=== PATIENT | female | born 1955 | race Caucasian/White ===

== ENCOUNTER 2023-04-02 05:02 | Observation (INO) ==
--- NOTE | 2023-02-25 11:50 | PAT Medication Instructions ---
Medication Instructions Date of Service February 25, 2023 Home Medications aspirin 81 mg tablet,delayed release 81 mg PO QAM diclofenac sodium 75 mg tablet,delayed release 75 mg PO BID glucosamine sulf dipot chlr,msm,chond 550 mg-C 30 mg-felicita 1 mg capsule (Glucosamine Chondroitin) 2 cap PO QAM levothyroxine 50 mcg tablet 50 mcg PO QAM yyxpoyvsjecp-oivxvhrb-pvmchr tablet (Multivitamin 50 Plus tablet) 1 tab PO QAM rosuvastatin 20 mg tablet 20 mg PO QAM turmeric 400 mg capsule 800 mg PO QAM vitamin A-vitamin C-vit E-min tablet 1 tab PO QAM MEDICATION INSTRUCTIONS: ASK your surgeon for instructions diclofenac sodium 75 mg tablet,delayed release 75 mg PO BID ASK your prescriber and surgeon aspirin 81 mg tablet,delayed release 81 mg PO QAM STOP taking 2 weeks before surgery glucosamine sulf dipot chlr,msm,chond 550 mg-C 30 mg-felicita 1 mg capsule (Glucosamine Chondroitin) 2 cap PO QAM turmeric 400 mg capsule 800 mg PO QAM vitamin A-vitamin C-vit E-min tablet 1 tab PO QAM DO NOT take the morning of surgery rwfzdcflhwcy-ocixwjqf-hsprmo tablet (Multivitamin 50 Plus tablet) 1 tab PO QAM Take morning of surgery With a small sip of water, OTHERWISE NOTHING TO EAT OR DRINK AFTER MIDNIGHT: rosuvastatin 20 mg tablet 20 mg PO QAM levothyroxine 50 mcg tablet 50 mcg PO QAM Other Notes If you have any questions please call us at [phone] or [phone] or [phone] or [phone]
--- NOTE | 2023-02-28 09:19 | Anesthesiology Consultation ---
Date of Service February 28, 2023 Assessment & Plan (1) Encounter for pre-operative examination: - Infectious disease screening: Per assessment on 02/28/23: No known infectious disease contacts or current infectious disease symptoms. No noted Covid positive test result in past 90 days. - Outpatient joint assessment: Pt currently scheduled for inpatient pathway. If surgeon requests review for outpatient joint pathway, patient is an acceptable candidate for outpatient joint program from anesthesia standpoint pending surgeon's office assessment that patient is motivated, has good support and completes Same Day Joint Program preop requirements. Chart Review Chart Review: Acceptable Risk for Surgery and Patient seen in Pre Admission Testing Teaching & Discussion Pre-Anesthesia Teaching/Discussion Notes: Instructed NPO after midnight before surgery,except medications with 15 cc of water. Medication instructions pro vided according to the PAT guidelines. History Surgery Operation Date: 04/02/23 15:25 Proposed Procedures p Left Total Knee Arthroplasty - Lopez Garcia MD Height/Weight Height: 5 ft 2 in Weight: 100 kg Allergies Allergy/AdvReac Type Severity Reaction Status Date / Time No Known Allergies Allergy Verified 02/21/23 14:00 Medications Home Medications Medication Instructions Recorded Confirmed Last Taken aspirin 81 mg tablet,delayed 81 mg PO QAM 02/21/23 02/21/23 Unknown release diclofenac sodium 75 mg 75 mg PO BID 02/21/23 02/21/23 Unknown tablet,delayed release glucosamine sulf dipot 2 cap PO QAM 02/21/23 02/21/23 Unknown chlr,msm,chond 550 mg-C 30 mg-felicita 1 mg capsule (Glucosamine Chondroitin) levothyroxine 50 mcg tablet 50 mcg PO QAM 02/21/23 02/21/23 Unknown lpecsyvwrxcw-ndfdzfml-ssbwaw 1 tab PO QAM 02/21/23 02/21/23 Unknown tablet (Multivitamin 50 Plus tablet) rosuvastatin 20 mg tablet 20 mg PO QAM 02/21/23 02/21/23 Unknown turmeric 400 mg capsule 800 mg PO QAM 02/21/23 02/21/23 Unknown vitamin A-vitamin C-vit E-min 1 tab PO QAM 02/21/23 02/21/23 Unknown tablet Past Medical History Medical History Arthritis Hyperlipidemia Hypothyroidism Exercise / Class Metabolic Activity II 4-5 Yardwork/Stairs/Walk up hill (one FS (no CP, no SOB)) Past Surgical History Surgical History History of adenoidectomy History of bilateral tubal ligation History of carpal tunnel release R/L History of cataract surgery R/L History of colonoscopy History of hysterectomy History of myringotomy History of tonsillectomy History of tooth extraction Hx of foot surgery cyst removed from right foot Past Anesthesia History No Hx of Anesthesia Complications and No Family Hx of Anesthesia Complications History of PONV No Hx of PONV and No Hx of Motion Sickness Social History Smoking Status: Former smoker Do You Dip or Chew Tobacco: No Smoking End Date: Quit 5 years Hx Alcohol Use: No Hx Substance Use: No substance use type: does not use Review of Systems Patient denies chest pain, shortness of breath, dyspnea on exertion, fever, chills, cough, wheezing, palpitations. Physical Exam Vital Signs VITALS BP 149/81 P 78 TEMP 98.3 SP02 96%RA RESP 18 PHYSICAL Full cervical extension range of motion. Full TMJ range of motion. Dentition: upper full dentures Lungs: clear throughout to auscultation Cardiac: regular rate and rhythm, no murmurs noted Spine: normal Carotid arteries: negative bruit Extremities: no LE edema Lab Results Anesthesia Preop Results Results Anesthesia Widget: WBC 7.53 K/ul (4.8-10.8) 02/28/23 Hgb 12.7 g/dl (12.0-16.0) 02/28/23 Hct 39.3 % (37.0-47.0) 02/28/23 Plt 321 K/uL (130-400) 02/28/23 Na 140 mmol/L (136-145) 02/28/23 K 4.1 mmol/L (3.5-5.1) 02/28/23 Cl 106 mmol/L (98-107) 02/28/23 CO2 28 mmol/L (21-32) 02/28/23 BUN 13 mg/dl (6-23) 02/28/23 Creat 0.66 mg/dl (0.6-1.2) 02/28/23 Glucose Level 90 mg/dl (70-99(Fasting)) 02/28/23 PT 10.7 Seconds (9.0-12.0) 02/28/23 PTT 23.8 Seconds (21.0-31.0) 02/28/23 INR 1.0 (0.9-1.1) 02/28/23 Urine Color Yellow 02/28/23 Urine Appearance Clear (Clear) 02/28/23 Urine pH 5.5 (4.5-7.5) 02/28/23 Urine Specific Aladdin 1.008 (1.000-1.030) 02/28/23 Urine Protein Negative (Negative) 02/28/23 Urine Glucose (UA) Negative (Negative) 02/28/23 Urine Ketones Negative (Negative) 02/28/23 Urine Blood Negative (Negative) 02/28/23 Urine Nitrite Negative (Negative) 02/28/23 Urine Bilirubin Negative (Negative) 02/28/23 Urine Urobilinogen Negative (Negative) 02/28/23 Urine Leukocyte Esterase Negative (Negative) 02/28/23 Blood Type A Negative 02/28/23 Antibody Screen NEGATIVE 02/28/23 Testing Electrocardiogram Date: 02/28/23 Findings: + NSR @ (67) Chest X-Ray Date: 02/28/23 FINDINGS: No lines and tubes are seen. Calcified aortic knob is seen. The lungs are clear. No evidence of pleural effusion or pneumothorax. IMPRESSION: No acute chest disease.
--- NOTE | 2023-03-31 17:52 | History & Physical Report ---
Date of Service March 31, 2023 Assessment & Plan (1) Primary osteoarthritis of left knee: Plan: Treatment options discussed with the patient. She has failed conservative measures and would like to proceed with surgical intervention. Risks, benefits and alternatives to surgery including but not limited to infection, DVT, pain, stiffness, need for revision surgery, damage to blood vessels, damage to nerves, PE, , were discussed with the patient and they wish to proceed. Beatrice n left total knee arthroplasty scheduled for [facility] on 04/02/[address] Garcia. Plan on outpatient physical therapy post op. Plan on aspirin 81mg twice daily for 1 month post op for DVT prophylaxis. All questions answered. Patient will f/u post op. History of Present Illness Chief Complaint: Left knee pain Primary Care Provider: Michelle Ruvalcaba PA-C 67yo female with PMHx significant for HTN, hypothyroidism, high cholesterol, who presents with ongoing left knee pain. She has failed conservative measures. Pain is interfering with her daily activity. She would like to proceed with surgical intervention. Patient denies headaches, sweats, fevers, chills, double vision, blurred vision, cough, sore throat, dysphagia, chest pain, sob, wheezing, n/v/d/c, numbness, tingling, fatigue, urinary symptoms, mood disorders. ROS p ositive for left knee pain and stiffness. Allergies Allergy/AdvReac Type Severity Reaction Status Date / Time No Known Allergies Allergy Verified 02/21/23 14:00 Home Medications Medication Instructions Recorded Confirmed Type aspirin 81 mg tablet,delayed 81 mg PO QAM 02/21/23 02/21/23 History release diclofenac sodium 75 mg 75 mg PO BID 02/21/23 02/21/23 History tablet,delayed release glucosamine sulf dipot 2 cap PO QAM 02/21/23 02/21/23 History chlr,msm,chond 550 mg-C 30 mg-felicita 1 mg capsule (Glucosamine Chondroitin) levothyroxine 50 mcg tablet 50 mcg PO QAM 02/21/23 02/21/23 History addczgsqvxfa-wqknoeul-safaki 1 tab PO QAM 02/21/23 02/21/23 History tablet (Multivitamin 50 Plus tablet) rosuvastatin 20 mg tablet 20 mg PO QAM 02/21/23 02/21/23 History turmeric 400 mg capsule 800 mg PO QAM 02/21/23 02/21/23 History vitamin A-vitamin C-vit E-min 1 tab PO QAM 02/21/23 02/21/23 History tablet Past Med/Surg History Medical History Arthritis Hyperlipidemia Hypothyroidism Surgical History History of adenoidectomy History of bilateral tubal ligation History of carpal tunnel release R/L History of cataract surgery R/L History of colonoscopy History of hysterectomy History of myringotomy History of tonsillectomy History of tooth extraction Hx of foot surgery cyst removed from right foot Social History Smoking Status: Former smoker Second Hand Exposure: No; Do You Dip or Chew Tobacco: No; Hx Alcohol Use: No Hx Substance Use: No Preferred Language: Thai Communication Ability: Effective Photogrammetric Tech Required: No Beliefs That Will Affect Care: None Current Living Situation: Spouse Feels Safe at Home: Yes Assistive Devices: Denture - Upper and Glasses Review of Systems All systems reviewed & are unremarkable except as noted in HPI & below Physical Exam Constitutional: well developed and well nourished; no acute distress Eyes: PERRL, conjunctivae normal, anicteric sclerae ENMT: external ear and nose normal, oropharynx normal Neck: trachea midline, no thyromegaly Respiratory: normal respiratory effort, lungs clear to auscultation Cardiovascular: RRR, no murmur, no edema Musculoskeletal: Left knee: mild effusion. Tenderness difusely with max tenderness lateral joint line. Guarded Smita's, stable to valgus and varus stress. ROM 0-125 degrees. Skin: no rashes, warm and dry Neurologic: patellar DTR's 2+ bilat, sensation intact Psychiatric: A+Ox3, euthymic affect Results & Data Diagnostic Findings Left knee radiographs demonstrate advanced osteoarthritis left knee, bon natividad bone lateral compartment. There is subluxation of femur on the tibia. She has periarticular osteophytes.
[2023-04-02] MEDS ORDERED: TRANEXAMIC ACID 1,000 MG **IV Intra-op IV SCH (06:00)
[2023-04-02] MEDS ORDERED: METOCLOPRAMIDE HCL 10 MG TABLET PO SCH (06:00)
[2023-04-02] MEDS ORDERED: dexAMETHasone 4 MG TAB PO SCH (06:00)
[2023-04-02] MEDS ORDERED: GABAPENTIN 300 MG CAP PO SCH (06:00)
[2023-04-02] MEDS ORDERED: ROPIVACAINE 0.5% HCL/PF 150 MG, BUPIVACAINE 0.75% MPF 20 ML, EPINEPHrine 30MG/30ML (OR ... INSTIL SCH (06:00)
[2023-04-02] MEDS ORDERED: ACETAMINOPHEN 500 MG TAB PO SCH (06:00)
[2023-04-02] MEDS ORDERED: TRANEXAMIC ACID 1,000 MG **IV Pre-op IV SCH (06:00)
[2023-04-02] MEDS ORDERED: CeleBREX 200 MG CAP PO SCH (06:00)
[2023-04-02] MEDS ORDERED: LR 500ML BOLUS, THEN 15ML/HR IV SCH (06:00)
[2023-04-02] MEDS ORDERED: FAMOTIDINE 20 MG TAB PO SCH (06:00)
[2023-04-02] MEDS ORDERED: ceFAZolin 2000MG 2,000 MG/15 ML SYR IV SCH (06:00)
[2023-04-02] MEDS ORDERED: LR 60ML/HR IV SCH (06:00)
[2023-04-02] MEDS ORDERED: ROPIVACAINE 0.5% 5 MG/ML 30 ML VIAL ONE (06:30)
[2023-04-02] MEDS ORDERED: HYDROmorphone INJ 1 MG/ML SYRINGE IV PRN (06:42)
[2023-04-02] MEDS ORDERED: ATROPINE SULFATE 0.1 MG/ML 10ML SYR IV PRN (06:42)
[2023-04-02] MEDS ORDERED: ONDANSETRON INJ 2 MG/ML 2 ML VIAL IV PRN ×2 (06:42→11:09)
[2023-04-02] MEDS ORDERED: KETOROLAC 30 MG/ML VIAL IV PRN (06:42)
[2023-04-02] MEDS ORDERED: ePHEDrine sulfate 50 MG/ML AMP IV PRN (06:42)
[2023-04-02] MEDS ORDERED: ORTHO JOINT ANESTHETIC ONE (06:58)
[2023-04-02] MEDS ORDERED: DEXAMETHASONE SOD INJ 4 MG/ML VIAL ONE (07:06)
[2023-04-02] MEDS ORDERED: LIDOCAINE 2% 2 ML VIAL/AMP(20MG/ML) INFIL ONE (07:06)
[2023-04-02] MEDS ORDERED: PROPOFOL IV EMULSION 10 MG/ML 20 ML VIAL IV ONE (07:06)
[2023-04-02] MEDS ORDERED: MIDAZOLAM HCL 1 MG/ML 2ML VIAL ONE (07:07)
--- NOTE | 2023-04-02 07:17 | History & Physical Bridge Note ---
Date of Service April 02, 2023 History & Physical Bridge Note I have examined the patient, reviewed the History & Physical and in the interval since the performance of the History & Physical I have noted the following changes of clinical significance: no changes noted
[2023-04-02] MEDS ORDERED: PHENYLEPHRINE HCL 10 MG/ML VIAL ONE (08:06)
--- NOTE | 2023-04-02 10:01 | Post Operative Brief Note ---
Immediate Post Op Note v1 Date of Surgery April 02, 2023 Pre & Post Diagnosis Operation Date: 04/02/23 07:15 Pre-Op Diagnosis: Left Knee Osteoarthritis Post-Op Diagnosis: Left Knee Osteoarthritis I identified the patient and participated in the time-out.: Yes Procedure Operation Date: 04/02/23 07:15 Actual Procedures p Left Total Knee Arthroplasty(Left), lateral release, alejo and Acticoat superficial wound VAC application- Lopez Garcia MD Surgeon Lopez Garcia MD Wireline Supervisor Helder SINGER Estimated Blood Loss 5 Findings Consistent with Post-Op Diagnosis Specimens Bone cuts Drains Hemovac Drain Anesthesia Type MAC Spinal Regional Complications none Disposition Disposition: Recovery Room Overlapping Procedure I was immediately available: during the entire case.
--- NOTE | 2023-04-02 10:10 | Operative Report ---
Post Operative Report Pre & Post Diagnosis Operation Date: 04/02/23 07:15 Pre-Op Diagnosis: Left Knee Osteoarthritis Post-Op Diagnosis: Left Knee Osteoarthritis I identified the patient and participated in the time-out.: Yes Procedure Operation Date: 04/02/23 07:15 Actual Procedures p Left Total Knee Arthroplasty(Left), lateral release, application alejo and Acticoat superficial wound VAC- Lopez Garcia MD Surgeon Lopez Garcia MD Asphalt Blender Helder SINGER Estimated Blood Loss 5 Findings Consistent with Post-Op Diagnosis Specimens Bone cuts Drains 2 Hemovac Anesthesia Type MAC Spinal Regional Complications none Disposition Disposition: Recovery Room Indications 68-year female with chronic progressive osteoarthritis left knee. Radiographs demonstrate that she has neutral alignment but has [id number]-lbcs in the lateral compartment and patellofemoral osteoarthritis. There is been some subluxation of the femur medially on the tibia. Description of Procedure The patient was taken to the operating room and anesthetized under spinal MAC regional block. Patient was placed supine on the the operating table. A pneumatic tourniquet was placed about the left obese upper thigh. The knee exam demonstrated an obese thigh with moderately obese knee with a knee effusion and good range of motion neutral alignment.. The involved leg was elevated exsanguinated with Esmarch bandage and the pneumatic tourniquet was raised to 350 millimeters mercury. A longitudinal incision was made across the anterior knee. Skin flaps were elevated. An incision was made into the medial retinaculum and extended up into the mid third of the quadriceps tendon and extended down to the tibial tubercle. Intra-articular findings demonstrated chronic ACL tear chronic lateral complex meniscus tear grade 4 osteoarthritis lateral compartment with some bone loss with grade 4 patellofemoral osteoarthritis on the patella. The knee was exposed by excising posterior cruciate ligament and menisci. The infrapatellar fat pad was resected. The fat pad over the anterior femur at the upper aspect of the articular surface was resected for placement of the component in that area. A subperiosteal peel lateral release was performed around the patella. The [employer] journey 2.0 posterior stabilized total knee arthroplasty system was utilized for the procedure. The custom femoral cutting guide was pinned in position. The distal femoral cut was made. The size 4, 5 in 1 cutting block was placed. The anterior posterior and chamfer cuts were made. The knee was extended and a free hand cut technique was performed to the patella. The patella width was measured and the width was reproduced using a 32 symmetrical patella component. 3 drill holes are made for the patella component pegs. The tibia was then subluxed. The custom tibial cutting block was pinned in position and the proximal tibial cut was made with the oscillating saw. Flexion and extension gaps were balanced. Medial releases were required including some selective pie crusting anterior MCL. The size 3 tibial trial was externally rotated in line with the tibial tubercle and pinned in position. The punch for the stem was used. The femoral trial was inserted and centered the notch cutting devices were used and the collet was placed. Tibial trials were used for the insert. The size 15 trial gave balanced ligaments through full range of motion. Patella tracking was assessed with range of motion. The patella tracked with some lateral tilt and lift off so a lateral release was performed leaving the geniculate vessels intact and this corrected the patella tracking to central with no tilt.. The trials were removed. The Orthomix anesthetic cocktail was injected per protocol. The cut bone surfaces and soft tissue were copiously irrigated with pulsatile lavage saline solution. The final components were cemented with Refobacin cement. The final components were [employer] journey 2.0 size 4 left posterior stabilized femoral component, 3 left tibial component, 15 mm tibial polyethylene insert, 32 mm symmetrical polyethylene patella. After the cement cured, the Betadine soak was used for 3 minutes. The knee was then copiously irrigated with pulsatile lavage saline solution. 2 drains were brought out laterally connected to Hemovac. The quadriceps tendon and medial retinaculum were closed with interrupted [id number] #1 Vicryl sutures. The knee was taken through full range of motion and repair was secure. Knee range of motion was 0 through 130 degrees. the subcutaneous tissues were closed with 2-0 Vicryl sutures. The skin was closed with kenya. A alejo and Acticoat superficial wound VAC was applied. The tourniquet was let down and the patient had good capillary refill to the extremity. The patient tolerated the procedure well. My physician assistant press operator Helder SINGER participated as assistant manager bilingual and was integral part in all aspects of the procedure including prepping, draping, leg positioning, soft tissue retraction, instrument management and assisted in the closure , wound VAC application and will pa rticipate in postoperative care the patient. I attest to the content of the Intraoperative Record and any orders documented therein. Any exceptions are noted below.
--- NOTE | 2023-04-02 11:04 | XRay Report ---
XR knee LT 1 or 2V routine HISTORY: 68 years-old Female Surgical Post Op left knee arthroplasty COMPARISON: None TECHNIQUE: 2 views of the left knee FINDINGS: Total joint arthroplasty with patellar resurfacing. Anterior midline skin kenya with expected posto perative soft tissue swelling, deep tissue air and surgical drainage catheter. No acute fracture or u nexpected opaque foreign body. IMPRESSION: Left knee total joint arthroplasty with expected postoperative changes. ACT 112: Negative or not required by law. The above report was generated using voice recognition software. It may contain grammatical, syntax o r spelling errors. Electronically signed by: Samy Parikh M.D. 04/02/2023 11:03 AM
[2023-04-02] MEDS ORDERED: METOCLOPRAMIDE HCL INJ 5 MG/ML 2 ML VIAL IV PRN (11:09)
[2023-04-02] MEDS ORDERED: MAGNESIUM HYDROXIDE SUSP 30 ML UDC PO PRN (11:09)
[2023-04-02] MEDS ORDERED: bisacodyL 10 MG SUPP PR PRN (11:09)
[2023-04-02] MEDS ORDERED: HYDROmorphone INJ 0.5 MG/0.5 ML SYR IV PRN (11:09)
[2023-04-02] MEDS ORDERED: NALOXONE HCL 0.4 MG/1 ML VIAL/CARP IV PRN (11:09)
[2023-04-02] MEDS: SODIUM CHLORIDE 0.9% 1,000 ML IV SCH ×2 (11:14→22:30)
--- NOTE | 2023-04-02 11:29 | Hospitalist Consultation ---
Date of Consultation April 02, 2023 Assessment & Plan (1) Primary osteoarthritis of left knee: - Pain management, bowel regimen and DVT ppx per the primary team - PT/OT consults, pt is planning on outpatient therapy with [facility] physical therapy in [place]. - Follow am CBC to monitor for acute blood loss, last hgb was 12.7 on 02/28 - Patient states that she is going to stop taking diclofenac sodium 75 mg twice a day and switched on to Celebrex during this admission to continue upon discharge. - DVT PPx with baby aspirin twice daily (2) Morbid obesity: - BMI of 39.7, encourage diet and weight loss thoughout hospital stay and on discharge - PT/OT consults - Consider nutrition consult (3) Hyperlipidemia: - Cont rosuvastatin 20 mg every morning -Chronic, stable as per lipid panel on epic review (4) Hypothyroidism: - Cont levothyroxine 50 mcg daily - Last TSH was 3.81 on 01/04/23, as per Epic review personally - Chronic, stable DVT ppx:teds, scds, asa 81 mg BID GI/FEN: HH diet Lines: 2 PIV CODE: FULL Dispo: From home, likely to remain in the hospital x 1-2 days Thank you for involving us in the care of Ms. Neff. Please do not hesitate to call with questions or concerns. At this time medicine service will follow along. Supervising Physician Co-Signing Physician Notes Pt seen and examined by me, care coordinated w/ Pb Rolle PA-C, pls refer to her note above for further detail. Pt is a 68 yo F with HTN, HLD, hypothyroidism, morbid obesity with BMI 39.7, tobacco use, endocervix cancer in 2018 s/p total hysterectomy, osteoporosis, glaucoma who is now s/p Left total knee arthroplasty by Dr. Garcia today (04/02/2023). Patient is doing well. Denies any nausea, chest pain, shortness of breath, she is having lunch. Currently denies any pain in her leg, she is able to wiggle her toes. she is alert oriented, answers appropriately, lungs are CTAB, no wheezing, rhonchi, crackles, heart sounds regular, abdomen soft, no ntender, obese. Cont. to closely monitor post-op, plan as above. ASA BID for dvt ppx per surgery. MD Dotty History of Present Illness Reason for Consultation: Medical management Requesting Physician: Dr. Garcia Attending Physician: Lopez Garcia MD History of Present Illness This is a 68 yo F with PMHx of HTN, HLD, hypothyroidism, morbid obesity with BMI 39.7, tobacco use, endocervix cancer in 2018 s/p total hysterectomy, osteoporosis, glaucoma who present to [facility] for routine Left total knee arthroplasty by Dr. Garcia on 04/02/2023. Patient is doing very well with her daughter sitting with her at bedside. She reports that this is her first knee replacement surgery, denies any acute pain, slightly numb in her knee but has sensation peripherally on her foot, able to wiggle her toes, can lift her hip up off the bed without issue. Last bowel movement was yesterday, discussion held regarding stool softener and MiraLAX at bedside. 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 She is anticipating taking several months off from this while she recovers from surgery. Denies any issues with tolerating p.o. intake after surgery today. She also notes that she quit smoking about 10 years ago, 30 years of smoking 3/4 pack/day. Denies any alcohol use or other illicit drug use. Allergies Allergy/AdvReac Type Severity Reaction Status Date / Time No Known Allergies Allergy Verified 04/02/23 05:39 Home Medications Medication Instructions Recorded Confirmed Type aspirin 81 mg tablet,delayed 81 mg PO QAM 02/21/23 04/02/23 History release diclofenac sodium 75 mg 75 mg PO BID 02/21/23 04/02/23 History tablet,delayed release glucosamine sulf dipot 2 cap PO QAM 02/21/23 04/02/23 History chlr,msm,chond 550 mg-C 30 mg-felicita 1 mg capsule (Glucosamine Chondroitin) levothyroxine 50 mcg tablet 50 mcg PO QAM 02/21/23 04/02/23 History ltlayfijjmtb-rvgqzxpj-jqsxwr 1 tab PO QAM 02/21/23 04/02/23 History tablet (Multivitamin 50 Plus tablet) rosuvastatin 20 mg tablet 20 mg PO QAM 02/21/23 04/02/23 History vitamin A-vitamin C-vit E-min 1 tab PO QAM 02/21/23 04/02/23 History tablet turmeric 900 mg-turmeric root 2 cap PO DAILY 04/02/23 04/02/23 History extract 100 mg-black pepper 5 mg capsule Patient History Medical History (Updated 04/02/23 @ 11:25 by Hui Rolle PA-C) Arthritis Hyperlipidemia Hypothyroidism Surgical History History of bilateral tubal ligation History of hysterectomy History of cataract surgery R/L Hx of foot surgery cyst removed from right foot History of carpal tunnel release R/L History of colonoscopy History of tooth extraction History of myringotomy History of adenoidectomy History of tonsillectomy Social History Smoking Status: Former smoker Smoking End Date: Quit 5 years; Second Hand Exposure: No; Do You Dip or Chew Tobacco: No; Tobacco Cessation Education Requested by Patient: No Hx Alcohol Use: No Hx Substance Use: No Preferred Language: Hebrew Communication Ability: Effective Greenhouse Transplanter Required: No Beliefs That Will Affect Care: None Current Living Situation: Spouse Other Information That Helps Us Care for You: No Feels Safe at Home: Yes Safety Concerns: Feels Safe At This Time Assistive Devices: Denture - Upper and Glasses Review of Systems Review of Systems: Constitutional: No fever, sweats or chills Eyes: No diplopia, no worsening or blurred vision ENT: normal hearing, no trouble swallowing Respiratory: No cough, sputum, dyspnea at rest or on exertion Cardiovascular: No chest pain, tightness or palpitations Abdomen: No pain, nausea, vomiting, diarrhea or constipation Musculoskeletal: No joint pain, calf pain, swelling Neurologic: No weakness, numbness/tingling, or balance problems Psychiatric: No anxiety or depression Skin: No rash or itch Physical Exam Physical Exam: General: awake, alert, no apparent distress, morbidly obese white female Head: Normocephalic, atraumatic ENT: PERRL, EOMI, no pharyngeal exudate, mucous membranes moist Chest: Clear to auscultation, on room air, no adventitious breath sounds Cardiac: Regular rate and rhythm, no murmur, no JVD, normal peripheral pulses, good capillary refill Abdominal: NABS x 4 quadrants, soft, nondistended, nontender to palpation, no rebound or guarding Extremities: Normal inspection, L knee with dressing C/D/I, CHRIS drain in place, no peripheral edema or erythema, calfs nontender to palpation Psych: Normal mood and affect Neuro: AAO x 3, strength intact bilaterally and rated 5/5, no motor deficits, speech is clear, no peripheral sensory deficits Results & Data Results & Data Vital Signs (Past 12 Hours) Vital Signs Temp Pulse Pulse Resp BP Pulse Ox O2 Del Method 04/02/23 10:50 65 18 126/73 97 Room Air 04/02/23 10:40 36.5 C 67 18 136/76 97 Room Air 04/02/23 10:30 71 20 135/76 98 Room Air 04/02/23 10:20 70 18 132/81 99 Nasal Cannula 04/02/23 10:10 79 18 120/80 99 Nasal Cannula 04/02/23 10:00 36.2 C L 77 18 112/71 99 Nasal Cannula 04/02/23 05:31 36.7 C 87 18 177/90 H 94 Room Air O2 Flow Rate 04/02/23 10:50 04/02/23 10:40 04/02/23 10:30 04/02/23 10:20 2 04/02/23 10:10 2 04/02/23 10:00 2 04/02/23 05:31 Diagnostic Findings Knee X-Ray 04/02/23 10:04 XR knee LT 1 or 2V routine HISTORY: 68 years-old Female Surgical Post Op left knee arthroplasty COMPARISON: None TECHNIQUE: 2 views of the left knee FINDINGS: Total joint arthroplasty with patellar resurfacing. Anterior midline skin kenya with expected postoperative soft tissue swelling, deep tissue air and surgical drainage catheter. No acute fracture or unexpected opaque foreign body. IMPRESSION: Left knee total joint arthroplasty with expected postoperative johnson nges. ACT 112: Negative or not required by law. The above report was generated using voice recognition software. It may contain grammatical, syntax or spelling errors. Electronically signed by: Samy Parikh M.D. 04/02/2023 11:03 AM
--- NOTE | 2023-04-02 11:44 | Anesthesiology Progress Note ---
Date of Service April 02, 2023 Anesthesia Post Procedure Vital Signs Vital Signs: Temp Pulse Pulse Resp BP Pulse Ox O2 Del Method 04/02/23 11:27 71 16 129/74 94 Room Air 04/02/23 10:50 65 18 126/73 97 Room Air 04/02/23 10:40 36.5 C 67 18 136/76 97 Room Air 04/02/23 10:30 71 20 135/76 98 Room Air 04/02/23 10:20 70 18 132/81 99 Nasal Cannula 04/02/23 10:10 79 18 120/80 99 Nasal Cannula 04/02/23 10:00 36.2 C L 77 18 112/71 99 Nasal Cannula 04/02/23 05:31 36.7 C 87 18 177/90 H 94 Room Air O2 Flow Rate 04/02/23 11:27 04/02/23 10:50 04/02/23 10:40 04/02/23 10:30 04/02/23 10:20 2 04/02/23 10:10 2 04/02/23 10:00 2 04/02/23 05:31 Transfer of Care Handoff Completed per policy Notes Mental Status: alert / awake / arousable Patient Amnestic to Procedure: Yes Nausea / Vomiting: adequately controlled Pain: adequately controlled Airway Patency, RR, SpO2: stable & adequate BP & HR: stable & adequate Hydration State: stable & adequate Anesthetic Complications: no major complications apparent
[2023-04-02] MEDS: ACETAMINOPHEN 500 MG TAB PO SCH ×2 (13:14→22:34)
[2023-04-02] MEDS: oxyCODONE HCL IR 5 MG TAB (IMMEDIATE RELEASE) PO PRN (16:09)
[2023-04-02] MEDS: ceFAZolin 2000MG 2,000 MG/15 ML SYR IV SCH (16:10)
[2023-04-02] MEDS ORDERED: SENNA 8.6 MG TAB PO SCH (21:00)
[2023-04-02] MEDS: ASPIRIN 81 MG ECTAB PO SCH (22:32)
[2023-04-02] MEDS: CeleBREX 200 MG CAP PO SCH (22:34)
[2023-04-02] MEDS: DOCUSATE SODIUM 100 MG CAP PO SCH (22:34)
[2023-04-03] MEDS: ceFAZolin 2000MG 2,000 MG/15 ML SYR IV SCH (01:11)
[2023-04-03] MEDS: ACETAMINOPHEN 500 MG TAB PO SCH (05:59)
[2023-04-03] MEDS ORDERED: LEVOTHYROXINE SODIUM 50 MCG TABLET PO SCH (06:30)
[2023-04-03] MEDS: ASPIRIN 81 MG ECTAB PO SCH (07:34)
[2023-04-03] MEDS: CeleBREX 200 MG CAP PO SCH (07:34)
[2023-04-03] MEDS: DOCUSATE SODIUM 100 MG CAP PO SCH (07:35)
--- NOTE | 2023-04-03 07:44 | Orthopedic Progress Note ---
Date of Service April 03, 2023 Assessment & Plan (1) Primary osteoarthritis of left knee: Plan: Postop day #1 left total knee arthroplasty -PT/OT -Pain management as written -DVT prophylaxis: SCDs, teds, aspirin 81 mg twice daily -A.m. labs are pending -Discharge planning: Plan on discharge home with plans on attending outpatient therapy. Hemovac output 150 overnight. Will monitor throughout the morning and if slows down plan on discharge home today. Addendum: Labs reviewed. Demonstrates hgb of 10.5 from 12.7 preop. Acute blood loss anemia due to surgical loss vs dilutional. Leukocytosis likely reactive due to surgical stress and perioperative steroids. Patient is asymptomatic. Hemovac with only 60cc of output after PT. Plan on d/c today. Admission and Anticipated Discharge Date Admission Date: April 02, 2023 Subjective Patient is postop day #1 left total knee arthroplasty. She is doing well this morning. Minimal pain. No current complaints. Denies chest pain, shortness of breath, nausea/vomiting/diarrhea, headaches or dizziness. Review of Systems Review of Systems: All systems reviewed & are unremarkable except as noted in Subjective Physical Exam Physical Exam: Left knee: Dressing is clean, dry, intact. Toes are mobile with good dorsiflexion. No calf tenderness. Able to do a straight leg raise. Distally neurovascular status and sensation is grossly intact. Results & Data Vital Signs (Past 12 Hours) Vital Signs Temp Pulse Resp BP Pulse Ox O2 Del Method 04/03/23 07:25 36.8 C 69 16 122/79 93 Room Air 04/03/23 02:55 36.5 C 68 16 123/67 93 Room Air 04/02/23 23:16 36.6 C 81 18 137/76 94 Room Air 04/02/23 20:00 36.6 C 86 16 143/82 H 96 Room Air
[2023-04-03 08:17] LABS: Hematocrit (blood only) 31.6 % (37.0-47.0); Hemoglobin 10.5 g/dl (12.0-16.0); Mean Corpuscular Hemoglobin 28.8 pg (25.0-34.0); Mean Corpuscular Hgb Conc 33.2 g/dL (32.0-36.0); Mean Corpuscular Volume 86.6 fL (80.0-100.0); Mean Platelet Volume 9.5 fL (9.4-12.4); Platelet Count 334 K/uL (130-400); RDW Coefficient of Variation 15.1 % (11.5-14.5); RDW Standard Deviation 48.2 fL (36.4-46.3); Red Blood Count 3.65 M/uL (4.20-5.40); White Blood Count 17.32 K/ul (4.8-10.8)
[2023-04-03 08:38] LABS: BUN Creatinine Ratio 19.8 (10-20); Calcium 8.7 mg/dl (8.6-10.3); Creatinine Clr Calc Pharmacy 73.9 ml/min; Est GFR (African American) 87.1 ml/min; Est GFR (Non-African American) 75.2 ml/min
[2023-04-03] MEDS ORDERED: ROSUVASTATIN CALCIUM 20 MG TAB PO SCH (09:00)
[2023-04-03] MEDS ORDERED: MULTIVITAMIN TAB PO SCH ×2 (09:00)
--- NOTE | 2023-04-03 10:47 | Hospitalist Progress Note ---
Date of Service April 03, 2023 Assessment & Plan (1) Primary osteoarthritis of left knee: Plan: - Pain management, bowel regimen and DVT ppx per the primary team - PT/OT consults, pt is planning on outpatient therapy with [facility] physical therapy in [place], [place]. - Patient states that she is going to stop taking diclofenac sodium 75 mg twice a day and switched on to Celebrex during this admission to continue upon discharge - DVT PPx with baby aspirin twice daily Acute blood loss anemia In post-operative setting Hgb 10.5 today (pre-op hgb 12.7) Asymptomatic; continue trending CBC during admission (2) Morbid obesity: Plan: - BMI of 39.7, encourage diet and weight loss thoughout hospital stay and on discharge - PT/OT consults - Consider nutrition consult (3) Hyperlipidemia: Plan: - Cont rosuvastatin 20 mg every morning -Chronic, stable as per lipid panel on epic review (4) Hypothyroidism: Plan: - Cont levothyroxine 50 mcg daily - Last TSH was 3.81 on 01/04/23, as per Epic review personally - Chronic, stable DVT ppx:teds, scds, asa 81 mg BID CODE: FULL Dispo: From home, likely to remain in the hospital x 1-2 days Thank you for involving us in the care of Ms. Neff. Please do not hesitate to call with questions or concerns. At this time medicine service will follow along. Admission and Anticipated Discharge Date Admission Date: April 02, 2023 Subjective Patient is postop day #1 left total knee arthroplasty. Feeling well today, offers no complaints overnight. Having minimal discomfort and feels ready to go home. No fever, chills, chest pain, shortness of breath. Tolerating diet without nausea or vomiting. Urinating without difficulty. Passing postop flatus, no bowel movement yet. Review of Systems Review of Systems: At least ten systems reviewed and negative except as noted in the HPI. Physical Exam Physical Exam: Gen: WD/WN, NAD, sitting in bedside chair, A&Ox3 HEENT: Normocephalic, atraumatic, conjunctivae moist, sclerae anicteric, mucous membranes moist Lung: Clear to Auscultation bilaterally, no wheezes/rales/rhonchi Heart: Regular rate, regular rhythm, no murmurs, rubs, or gallops Abdomen: Soft, NT, ND +BS x 4 Extremities: + L knee with dressing c/d/i. Hemovac drain in place. BLE strength 5/5. No edema Skin: Warm, no rash Results & Data Results & Data Vital Signs (Past 12 Hours) Vital Signs Temp Pulse Resp BP Pulse Ox O2 Del Method 04/03/23 09:26 Room Air 04/03/23 07:25 36.8 C 69 16 122/79 93 Room Air 04/03/23 02:55 36.5 C 68 16 123/67 93 Room Air 04/02/23 23:16 36.6 C 81 18 137/76 94 Room Air Laboratory Results Short CBC 04/03/23 Range/Units 07:45 WBC 17.32 H (4.8-10.8) K/ul Hgb 10.5 L (12.0-16.0) g/dl Hct 31.6 L (37.0-47.0) % Plt Count 334 (130-400) K/uL BMP 04/03/23 07:45 Sodium 136 Potassium 4.0 Chloride 104 Carbon Dioxide 26 BUN 16 Creatinine 0.81 Glucose 118 H Calcium 8.7 Diagnostic Findings Knee X-Ray 04/02/23 10:04 XR knee LT 1 or 2V routine HISTORY: 68 years-old Female Surgical Post Op left knee arthroplasty COMPARISON: None TECHNIQUE: 2 views of the left knee FINDINGS: Total joint arthroplasty with patellar resurfacing. Anterior midline skin kenya with expected postoperative soft tissue swelling, deep tissue air and surgical drainage catheter. No acute fracture or unexpected opaque foreign body. IMPRESSION: Left knee total joint arthroplasty with expected postoperative changes. ACT 112: Negative or not required by law. The above report was generated using voice recognition software. It may contain grammatical, syntax or spelling errors. Electronically signed by: Samy Parikh M.D. 04/02/2023 11:03 AM
[2023-04-03] MEDS: oxyCODONE HCL IR 5 MG TAB (IMMEDIATE RELEASE) PO PRN (11:31)
--- NOTE | 2023-04-03 11:53 | Discharge Summary ---
Date of Service April 03, 2023 Admission HPI Per Admitting Provider 67yo female with PMHx significant for HTN, hypothyroidism, high cholesterol, who presents with ongoing left knee pain. She has failed conservative measures. Pain is interfering with her daily activity. She would like to proceed with surgical intervention. Patient denies headaches, sweats, fevers, chills, double vision, blurred vision, cough, sore throat, dysphagia, chest pain, sob, wheezing, n/v/d/c, numbness, tingling, fatigue, urinary symptoms, mood disorders. ROS positive for left knee pain and stiffness. Admission Exam Per Admitting Provider Constitutional: well developed and well nourished; no acute distress Eyes: PERRL, conjunctivae normal, anicteric sclerae ENMT: external ear and nose normal, oropharynx normal Neck: trachea midline, no thyromegaly Respiratory: normal respiratory effort, lungs clear to auscultation Cardiovascular: RRR, no murmur, no edema Musculoskeletal: Left knee: mild effusion. Tenderness difusely with max tenderness lateral joint line. Guarded Smita's, stable to valgus and varus stress. ROM 0-125 degrees. Skin: no rashes, warm and dry Neurologic: patellar DTR's 2+ bilat, sensation intact Psychiatric: A+Ox3, euthymic affect Principal Diagnosis Left knee osteoarthritis Discharge Exam Left knee: Dressing is clean, dry, intact. Toes are mobile with good dorsiflexion. No calf tenderness. Able to do a straight leg raise. Distally neurovascular status and sensation is grossly intact. Constitutional well developed and well nourished; no acute distress Discharge Data Allergies Allergy/AdvReac Type Severity Reaction Status Date / Time No Known Allergies Allergy Verified 04/02/23 05:39 Consultations 03/28/23 15:49 Consult Hospitalist Routine Procedures Performed Operation Date: 04/02/23 07:15 Actual Procedures p Left Total Knee Arthroplasty(Left) - Lopez Garcia MD Ordered Studies 04/02/23 05:00 US - OR guided needle placemen Routine Hospital Course (1) Primary osteoarthritis of left knee: Postop day #1 left total knee arthroplasty -PT/OT -Pain management as written -DVT prophylaxis: SCDs, teds, aspirin 81 mg twice daily -A.m. labs are pending -Discharge planning: Plan on discharge home with plans on attending outpatient therapy. Hemovac output 150 overnight. Will monitor throughout the morning and if slows down plan on discharge home today. Addendum: Labs reviewed. Demonstrates hgb of 10.5 from 12.7 preop. Acute blood loss anemia due to surgical loss vs dilutional. Leukocytosis likely reactive due to surgical stress and perioperative steroids. Patient is asymptomatic. Hemovac with only 60cc of output after PT. Plan on d/c today. Total Time Total Time Spent Total Time Spent (In Minutes): 20 Discharge Plan Discharge Items Patient Disposition: Home - Self-Care Reason For Visit: Left Knee Osteoarthritis Discharge Diagnosis: Left knee osteoarthritis Activity: Per Instructions section Non-emergency contact: Surgeon Call non-emergency contact if: you have any medication questions, your pain is not controlled, your pain is concerning for you, you have a fever, your temperature is above 101, your wound has increased redness and your wound has increased drainage Follow-up/Referrals: Michelle Ruvalcaba PA-C [Primary Care Provider] - Diet: Regular Addtl Attending Provider Instructions: ACTIVITY RECOMMENDATIONS: SELF CARE INSTRUCTIONS AFTER TOTAL KNEE REPLACEMENT A. You may need to continue a physical therapy program after discharge from the hospital. There are several options available to you. Your doctor will assist you in selecting the best one for you. 1. An out-patient facility 2 to 3 times a week for therapy or home therapy. 2. Continue working on all exercises taught to you in the hospital. Your goals should be to increase bending of your knee to 90 degrees and beyond and to fully straighten your knee. B. You may progress at your own pace from walking with a walker or crutches to a cane; then to no assistive devices. C. Make walking a part of your daily routine. Be up as much as comfortable with rest periods throughout the day. Rest with leg elevation is very important. Use the ice wrap frequently for the first 3-4 weeks. D. There are no restrictions on activities. You may ride in a car, shop, participate in engine lathe set up operator tool and all social activities. E. Wear the long elastic stockings (JOHN hose) 20 hours a day for 2 weeks after surgery. They can be removed several times a day for laundering and for a bath. F. You may shower, no tub baths until cleared by your doctor. SPECIAL CARE INSTRUCTIONS: VERY IMPORTANT TO READ AND REVIEW A. There are a few signs you need to watch for after you are home. Call [facility] if you notice any of the followin. Increased severe knee pain. Some pain is expected especially when you exercise. 2. Increased swelling in your leg or knee; pain or swelling of the calf muscle in either lower leg. 3. Any fluid drainage from the incision. 4. Shortness of breath or chest pain. B. Please call [facility] at if you have any concerns or questions about your operation or recovery. The doctor or his nurse will return your call promptly. C. You must take antibiotics before dental work, bladder, bowel or other surgery. Your doctor will provide you with a permanent care to carry describing this precaution. IMPORTANT: * REMEMBER TO TAKE ASPIRIN, 81 MG, TWICE DAILY FOR 4 WEEKS UNLESS OTHERWISE DIRECTED. THIS IS YOUR BLOOD THINNER. * HIGH RISK PATIENTS MAY BE PRESCRIBED A STRONGER BLOOD THINNER. THIS WILL BE PROVIDED AT DISCHARGE. * CALL IF INCREASED PAIN, REDNESS, DRAINAGE OR FEVER GREATER THAT 101. * WEAR JOHN HOSE 20 HOURS PER DAY FOR 2 WEEKS. There is a large suction dressing covering your incision. This will help pull any excess drainage from the wound and allow your incision to heal properly. You may shower with this if you can keep the unit outside of the shower. If any bleeding or leakage is noted please call your doctor's office. This will remain on your incision for 7 days and then should be removed. This can be done yourself or by the home nursing staff if applicable. The entire unit is disposable once removed. Once removed, keep incision clean and dry. If redness or drainage is noted, please call your surgeon. IF INCISION IS LEAKING THROUGH DRESSING, CALL THE OFFICE . FOLLOW UP VISIT: If appointment is not already scheduled: Please call [facility] to make a follow-up appointment for 2 weeks after your surgery at . Stand-Alone Forms: My [employer], Smoking Cessation Medications and DC Order Prescriptions: New acetaminophen [Tylenol Extra Strength] 500 mg Tablet 1,000 mg PO Q8 Qty: 60 0RF aspirin 81 mg Tablet,Delayed Release (Dr/Ec) 81 mg PO BID Qty: 60 0RF celecoxib [Celebrex] 200 mg Capsule 200 mg PO BID Qty: 60 0RF oxycodone 5 mg Tablet 5 - 10 mg PO .Q4h-6h MDD 6 PRN (Reason: pain) Qty: 30 0RF Rx Instructions: Ongoing therapy, Dr. Garcia supervising Continued levothyroxine 50 mcg Tablet 50 mcg PO QAM Multivitamin 50 Plus Tablet 1 tab PO QAM vitamin A-vitamin C-vit E-min Tablet 1 tab PO QAM rosuvastatin 20 mg Tablet 20 mg PO QAM Glucosamine Chondroitin 550-30-1 mg Capsule 2 cap PO QAM turmeric-turmeric ext-pepper 900-100-5 mg Capsule 2 cap PO DAILY Discontinued aspirin [Aspir-81] 81 mg Tablet,Delayed Release (Dr/Ec) 81 mg PO QAM diclofenac sodium 75 mg Tablet,Delayed Release (Dr/Ec) 75 mg PO BID Discharge Orders: Discharge Order (Routine); Ordered 04/03/23 Ordered By: Helder Givens Admission Data Admit Date/Time: 04/02/23 10:04 Attending Provider: Lopez Garcia Admit Provider: Lopez Garcia Primary Care Provider: Michelle Ruvalcaba Other Providers: Fadumo Greenwood; Farooq Acosta; Magnolia Camara Other Interventions: Discharge Summary Assessment (RN) Last Done: 04/03/23 11:03
== END 2023-04-03 11:44 | disposition home or self-care (01) ==
LOC: 3N 05:02 → ASU 05:02

== ENCOUNTER 2025-02-09 05:23 | Observation (INO) ==
--- NOTE | 2024-10-28 12:53 | PAT Medication Instructions ---
Medication Instructions Date of Service October 28, 2024 Home Medications Medication Instructions Recorded acetaminophen 500 mg tablet 1,000 mg (2 x 500 mg) PO Q8 #60 04/03/23 (Tylenol Extra Strength) tabs celecoxib 200 mg capsule (Celebrex) 200 mg PO BID #60 caps 04/03/23 oxycodone 5 mg tablet 5 - 10 mg (1 - 2 x 5 mg) PO 04/03/23 .Q4h-6h PRN pain #30 tabs glucosamine sulf dipot chlr,msm,chond 550 mg-C 30 mg-felicita 1 mg capsule (Glucosamine Chondroitin) 2 cap PO QAM levothyroxine 50 mcg tablet 50 mcg PO QAM pevalecvzxkn-detpynqp-cjiede tablet (Multivitamin 50 Plus tablet) 1 tab PO QAM rosuvastatin 20 mg tablet 20 mg PO QAM turmeric 900 mg-turmeric root extract 100 mg-black pepper 5 mg capsule 2 cap PO DAILY acetaminophen 500 mg tablet (Tylenol Extra Strength) 1,000 mg (2 x 500 mg) PO Q8 celecoxib 200 mg capsule (Celebrex) 200 mg PO BID oxycodone 5 mg tablet 5 - 10 mg (1 - 2 x 5 mg) PO .Q4h-6h PRN pain aspirin 81 mg tablet,delayed release 81 mg PO QAM gabapentin 100 mg tablet 100 mg PO TID lisinopril 10 mg tablet 10 mg PO QAM Ocuvite Adult 50 Plus) 1 cap PO QAM ASK your surgeon for instructions celecoxib 200 mg capsule (Celebrex) 200 mg PO BID ASK your prescriber and surgeon aspirin 81 mg tablet,delayed release 81 mg PO QAM STOP taking 2 weeks before surgery (or as soon as possible if surgery is within 2 weeks) glucosamine sulf dipot chlr,msm,chond 550 mg-C 30 mg-felicita 1 mg capsule (Glucosamine Chondroitin) 2 cap PO QAM turmeric 900 mg-turmeric root extract 100 mg-black pepper 5 mg capsule 2 cap PO DAILY Ocuvite Adult 50 Plus 1 cap PO QAM DO NOT take the morning of surgery Multivitamin 50 Plus tablet 1 tab PO QAM lisinopril 10 mg tablet 10 mg PO QAM Take morning of surgery With a small sip of water, OTHERWISE NOTHING TO EAT OR DRINK AFTER MIDNIGHT: levothyroxine 50 mcg tablet 50 mcg PO QAM rosuvastatin 20 mg tablet 20 mg PO QAM acetaminophen 500 mg tablet (Tylenol Extra Strength) 1,000 mg (2 x 500 mg) PO Q8 oxycodone 5 mg tablet 5 - 10 mg (1 - 2 x 5 mg) PO .Q4h-6h PRN pain (if needed) gabapentin 100 mg tablet 100 mg PO TID Take evening before surgery acetaminophen 500 mg tablet (Tylenol Extra Strength) 1,000 mg (2 x 500 mg) PO Q8 oxycodone 5 mg tablet 5 - 10 mg (1 - 2 x 5 mg) PO .Q4h-6h PRN pain (if needed) gabapentin 100 mg tablet 100 mg PO TID Other Notes If you have any questions please call us at [phone] or [phone] or [phone] or [phone]
--- NOTE | 2024-11-03 11:46 | Anesthesiology Consultation ---
Date of Service November 03, 2024 Assessment & Plan (1) Encounter for pre-operative examination: - s/p left TKA 04/02/23 SAB L3-L4 1 attempt + PNB. - Outpatient joint assessment: Patient is currently scheduled for inpatient pathway. If re-evaluated and patient/surgeon requests outpatient pathway, patient is an acceptable candidate for outpatient joint program from anesthesia standpoint pending surgeon's office assessment of pt motivation/support/completion of same day joint program preop requirements. Chart Review Chart Review: Acceptable Risk for Surgery and Patient seen in Pre Admission Testing Teaching & Discussion Pre-Anesthesia Teaching/Discussion Notes: Instructed NPO after midnight before surgery, except medications with 15 cc of water. Medication instructions provided according to the PAT guidelines. History Surgery Operation Date: 11/24/24 10:05 Proposed Procedures p Right Total Knee Arthroplasty - Lopez Garcia MD Height/Weight Height: 5 ft 2 in Weight: 106.1 kg Allergies Allergy/AdvReac Type Severity Reaction Status Date / Time No Known Allergies Allergy Verified 10/26/24 11:48 Medications Home Medications Medication Instructions Recorded Confirmed Last Taken glucosamine sulf dipot 2 cap PO QAM 02/21/23 10/26/24 03/19/23 08:00 chlr,msm,chond 550 mg-C 30 mg-felicita 1 mg capsule (Glucosamine Chondroitin) levothyroxine 50 mcg tablet 50 mcg PO QAM 02/21/23 10/26/24 04/02/23 03:55 oobdhsrjhjxc-ncntdpfi-kfpfih 1 tab PO QAM 02/21/23 10/26/24 03/19/23 08:00 tablet (Multivitamin 50 Plus tablet) rosuvastatin 20 mg tablet 20 mg PO QAM 02/21/23 10/26/24 04/02/23 03:55 turmeric 900 mg-turmeric root 2 cap PO DAILY 04/02/23 10/26/24 04/01/23 extract 100 mg-black pepper 5 mg capsule acetaminophen 500 mg tablet 1,000 mg (2 x 500 mg) PO Q8 #60 04/03/23 10/26/24 Unknown (Tylenol Extra Strength) tabs celecoxib 200 mg capsule (Celebrex) 200 mg PO BID #60 caps 04/03/23 10/26/24 Unknown oxycodone 5 mg tablet 5 - 10 mg (1 - 2 x 5 mg) PO 04/03/23 10/26/24 Unknown .Q4h-6h PRN pain #30 tabs aspirin 81 mg tablet,delayed 81 mg PO QAM 10/26/24 10/26/24 Unknown release gabapentin 100 mg tablet 100 mg PO TID 10/26/24 10/26/24 Unknown lisinopril 10 mg tablet 10 mg PO QAM 10/26/24 10/26/24 Unknown swkldrdj-oww- 250 mg-dha 90 1 cap PO QAM 10/26/24 10/26/24 Unknown mg-epa 160 bf-gejq-wwbt-zeax capsule (Ocuvite Adult 50 Plus) Past Medical History Medical History Arthritis Hyperlipidemia Hypertension controlled, stable per pt Hypothyroidism Patient denies h/o stroke, seizures, heart attack, heart failure, blood clots/DVTs or blood transfusions. Exercise / Class Metabolic Activity II 4-5 Yardwork/Stairs/Walk up hill (denies chest discomfort or shortness of breath with one flight of stairs) Past Family History Family History Mother Diabetes Past Surgical History Surgical History History of adenoidectomy History of bilateral tubal ligation History of carpal tunnel release R/L History of cataract surgery R/L History of colonoscopy History of hysterectomy History of myringotomy History of tonsillectomy History of tooth extraction History of total knee replacement left Hx of foot surgery cyst removed from right foot Past Anesthesia History No Hx of Anesthesia Complications and No Family Hx of Anesthesia Complications History of PONV No Hx of PONV and No Hx of Motion Sickness Social History Smoking Status: Former smoker Do You Dip or Chew Tobacco: No Smoking End Date: 4 yrs ago Hx Alcohol Use: No Hx Substance Use: No substance use type: does not use Review of Systems Patient denies chest pain, shortness of breath, dyspnea on exertion, snoring, witnessed apneas, reflux, fever, chills, cough, wheezing, or palpitations. Physical Exam Vital Signs Vitals BP 127/82 P 77 TEMP 37.0 SP02 96% on RA RESP 18 Physical Patient resting comfortably in chair in no acute distress, alert and oriented, responding appropriately throughout visit Full cervical extension range of motion without pain TMD 3.6 finger breadths Mallampati Score 3 Dentition: full upper plate; denies chipped or loose teeth, caps/crowns, implants or bridges Lungs: normal respiratory effort. Good air movement, clear throughout to auscultation, no adventitious breath sounds Cardiac: regular rate and rhythm, no murmurs noted Carotid arteries: negative bruit bilat Lab Results Anesthesia Preop Results Results Anesthesia Widget: WBC 10.35 K/ul (4.8-10.8) 11/03/24 Hgb 12.1 g/dl (12.0-16.0) 11/03/24 Hct 38.6 % (37.0-47.0) 11/03/24 Plt 374 K/uL (130-400) 11/03/24 Na 141 mmol/L (136-145) 11/03/24 K 4.6 mmol/L (3.5-5.1) 11/03/24 Cl 106 mmol/L (98-107) 11/03/24 CO2 27 mmol/L (21-32) 11/03/24 BUN 16 mg/dl (6-23) 11/03/24 Creat 0.80 mg/dl (0.6-1.2) 11/03/24 Glucose Level 111 mg/dl (70-99(Fasting)) H 11/03/24 PT 10.2 Seconds (9.0-12.0) 11/03/24 PTT 28 Seconds (21-31) 11/03/24 INR 0.9 (0.9-1.1) 11/03/24 Urine Color Dark Yellow 11/03/24 Urine Appearance Clear (Clear) 11/03/24 Urine pH 5.5 (4.5-7.5) 11/03/24 Urine Specific [place] 1.026 (1.000-1.030) 11/03/24 Urine Protein Trace (Negative) H 11/03/24 Urine Glucose (UA) Negative (Negative) 11/03/24 Urine Ketones Trace (Negative) H 11/03/24 Urine Blood Negative (Negative) 11/03/24 Urine Nitrite Negative (Negative) 11/03/24 Urine Bilirubin Negative (Negative) 11/03/24 Urine Urobilinogen Negative (Negative) 11/03/24 Urine Leukocyte Esterase Trace (Negative) H 11/03/24 Urine WBC (Auto) 0-5 /hpf (0-5) 11/03/24 Urine RBC (Auto) 6-10 /hpf (0-2) H 11/03/24 Urine Hyaline Casts (Auto) 0-2 /lpf (0-2) 11/03/24 Urine Epithelial Cells (Auto) 11-20 /hpf (0-2) H 11/03/24 Urine Bacteria (Auto) None Seen (None Seen) 11/03/24 Blood Type A Negative 11/03/24 Antibody Screen NEGATIVE 11/03/24 Testing Electrocardiogram Date: 11/03/24 NSR, rate 65 bpm Chest X-Ray Date: 11/03/24 No acute findings.
--- NOTE | 2025-02-08 19:40 | History & Physical Report ---
Date of Service February 08, 2025 Assessment & Plan (1) Osteoarthritis of right knee: Plan: End-stage tricompartmental right knee osteoarthritis. Proceed with [employer] journey total knee replacement. May need lateral release micropsia knee due to patellofemoral malalignment. Osteoarthritis type: primary Qualified Code(s): M17.11 - Unilateral primary osteoarthritis, right knee (2) Status post left knee replacement: History of Present Illness Chief Complaint: Chronic right knee pain Primary Care Provider: Tal Rojas DO 69-year-old female with chronic right knee pain failed conservative management including injections. Patient has end-stage osteoarthritis right knee. Patient had successful left knee replacement in the past. * Patient denies headaches, sweats, fevers, chills, double vision, blurred vision, cough, sore throat, dysphagia, chest pain, sob, wheezing, n/v/d/c, numbness, tingling, fatigue, urinary symptoms, mood disorders. ROS positive for parotitis and facial swelling history which has resolved. Allergies Allergy/AdvReac Type Severity Reaction Status Date / Time No Known Allergies Allergy Verified 02/04/25 13:22 Home Medications Medication Instructions Recorded Confirmed Type glucosamine sulf dipot 2 cap PO QAM 02/21/23 10/26/24 History chlr,msm,chond 550 mg-C 30 mg-felicita 1 mg capsule (Glucosamine Chondroitin) levothyroxine 50 mcg tablet 50 mcg PO QAM 02/21/23 10/26/24 History uvatiakuamsn-isxyceqy-kbaulf 1 tab PO QAM 02/21/23 10/26/24 History tablet (Multivitamin 50 Plus tablet) rosuvastatin 20 mg tablet 20 mg PO QPM 02/21/23 02/04/25 History turmeric 900 mg-turmeric root 2 cap PO DAILY 04/02/23 10/26/24 History extract 100 mg-black pepper 5 mg capsule celecoxib 200 mg capsule (Celebrex) 200 mg PO BID #60 caps 04/03/23 10/26/24 Rx aspirin 81 mg tablet,delayed 81 mg PO QAM 10/26/24 10/26/24 History release gabapentin 100 mg tablet 100 mg PO TID 10/26/24 10/26/24 History lisinopril 10 mg tablet 10 mg PO QAM 10/26/24 10/26/24 History ykmgbmno-yeg-ukfco2 250 mg-dha 90 1 cap PO QAM 10/26/24 10/26/24 History mg-epa 160 vn-rkhc-vbhg-zeax capsule (Ocuvite Adult 50 Plus) acetaminophen 500 mg tablet 1,000 mg PO UD PRN Pain 02/04/25 02/04/25 History (Tylenol Extra Strength) Past Med/Surg History Problem List (Updated 02/08/25 @ 19:39 by Lopez Garcia MD) Status post left knee replacement Osteoarthritis of right knee Morbid obesity Primary osteoarthritis of left knee Encounter for pre-operative examination Hyperlipidemia Hypothyroidism Medical History History of parotitis 11/19/24, tx with medication.resolved. no current s/s. Hypothyroidism Hypertension controlled, stable per pt Hyperlipidemia Arthritis Surgical History History of total knee replacement left History of bilateral tubal ligation History of hysterectomy History of cataract surgery R/L Hx of foot surgery cyst removed from right foot History of carpal tunnel release R/L History of colonoscopy History of tooth extraction History of myringotomy History of adenoidectomy History of tonsillectomy Family History Mother Diabetes Social History Smoking Status: Former smoker Tobacco Type: Cigarettes Smoking End Date: approx 2014; Second Hand Exposure: No; Do You Dip or Chew Tobacco: No; Tobacco Cessation Education Requested by Patient: No Hx Alcohol Use: No Hx Substance Use: No Preferred Language: Welsh Communication Ability: Effective Strong Nitric Operator Required: No Beliefs That Will Affect Care: None Current Living Situation: Spouse Other Information That Helps Us Care for You: No Feels Safe at Home: Yes Safety Concerns: Feels Safe At This Time Assistive Devices: Denture - Upper and Glasses Review of Systems All systems reviewed & are unremarkable except as noted in HPI & below Physical Exam Constitutional: WD/WN, vitals as above Respiratory: normal respiratory effort; no respiratory distress Cardiovascular: Rate/Rhythm: regular rate and regular rhythm Musculoskeletal: Right knee exam is varus alignment mild swelling and effusion painful range of motion 10 to 125 degrees range of motion distal circulation sensorimotor exams intact. Left knee consistent with total knee replacement mild swelling benign healed incision good range of motion. Skin: no rashes, warm and dry Neurologic: normal touch/pain/proprioception Psychiatric: A+Ox3, euthymic affect Results & Data Diagnostic Findings X-rays demonstrate tricompartmental osteoarthritis ihgt-ui-bkft in all 3 compartments medial subluxation of the femur on the tibia with some bone erosion of the femoral condyle and subchondral sclerotic changes with osteophytes. Some lateral translation of the patella with patellofemoral malalignment.
[~2025-02-09 05:23] MED LIST: ACETAMINOPHEN 500 MG TAB PO SCH; CeleBREX 200 MG CAP PO SCH; FAMOTIDINE 20 MG TAB PO SCH; GABAPENTIN 300 MG CAP PO SCH; LR 500ML BOLUS, THEN 15ML/HR IV SCH; LR 60ML/HR IV SCH; METOCLOPRAMIDE HCL 10 MG TABLET PO SCH; ROPIVACAINE 0.5% HCL/PF 246 MG, Ketorolac (*for OR use only*) 30 MG in SODIUM CHLORIDE ... INFIL SCH; TRANEXAMIC ACID 1,000 MG **IV Pre-op IV SCH; dexAMETHasone**PF** 10 MG/ML VIAL IV SCH
[2025-02-09] MEDS: LR 500ML BOLUS, THEN 15ML/HR IV SCH (05:53)
[2025-02-09] MEDS: LR 60ML/HR IV SCH (05:53)
[2025-02-09] MEDS: ACETAMINOPHEN 500 MG TAB PO SCH ×2 (05:53→14:08)
[2025-02-09] MEDS: FAMOTIDINE 20 MG TAB PO SCH (05:54)
[2025-02-09] MEDS: METOCLOPRAMIDE HCL 10 MG TABLET PO SCH (05:54)
[2025-02-09] MEDS: GABAPENTIN 300 MG CAP PO SCH (05:54)
[2025-02-09] MEDS: dexAMETHasone**PF** 10 MG/ML VIAL IV SCH (05:54)
[2025-02-09] MEDS: CeleBREX 200 MG CAP PO SCH (05:54)
[2025-02-09 05:55] LABS: Anion Gap 7.0 (3-11); Blood Urea Nitrogen 12.0 mg/dl (6-23); Calcium 9.1 mg/dl (8.6-10.3); Carbon Dioxide 27.0 mmol/L (21-32); Chloride 106.0 mmol/L (98-107); Creatinine Clr Calc Pharmacy 67.2 ml/min; Glucose 105.0 mg/dl (70-99(Fasting)); Potassium 4.1 mmol/L (3.5-5.1); Sodium 140.0 mmol/L (136-145)
[2025-02-09] MEDS ORDERED: BUPIVACAINE 0.5 % 5 MG/1 ML PF 10ML VIAL ONE (06:30)
[2025-02-09] MEDS ORDERED: EPINEPHrine INJ 1 MG/ML AMP ONE (06:30)
[2025-02-09] MEDS ORDERED: DEXAMETHASONE SOD INJ 4 MG/ML VIAL ONE (06:30)
[2025-02-09] MEDS ORDERED: BUPIVACAINE 0.25% PF 30 ML VIAL ONE (06:30)
[2025-02-09] MEDS ORDERED: MIDAZOLAM HCL 1 MG/ML 2ML VIAL ONE (06:46)
[2025-02-09] MEDS ORDERED: PROPOFOL IV EMULSION 10 MG/ML 20 ML VIAL IV ONE ×3 (06:47→08:59)
[2025-02-09] MEDS ORDERED: LIDOCAINE 2% 2 ML VIAL/AMP(20MG/ML) INFIL ONE (06:49)
[2025-02-09] MEDS: TRANEXAMIC ACID 1,000 MG **IV Pre-op IV SCH (07:07)
[2025-02-09] MEDS ORDERED: ePHEDrine sulfate 50 MG/5 ML SYR ONE (07:43)
[2025-02-09] MEDS: ORTHO JOINT ANESTHETIC ONE (08:10)
[2025-02-09] MEDS: ROPIVACAINE 0.5% HCL/PF 246 MG, Ketorolac (*for OR use only*) 30 MG in SODIUM CHLORIDE ... INFIL SCH (08:10)
[2025-02-09] MEDS ORDERED: ATROPINE SULFATE 0.1 MG/ML 10ML SYR IV PRN (09:09)
[2025-02-09] MEDS ORDERED: ONDANSETRON INJ 2 MG/ML 2 ML VIAL IV PRN ×2 (09:09→10:41)
[2025-02-09] MEDS ORDERED: PROMETHAZINE HCL 6.25 MG in SODIUM CHLORIDE 0.9% 50 ML IV PRN (09:09)
--- NOTE | 2025-02-09 09:41 | Operative Report ---
Post Operative Report Pre & Post Diagnosis Operation Date: 02/09/25 07:00 Pre-Op Diagnosis: Degenerative joint disease right knee Post-Op Diagnosis: Degenerative joint disease right knee I identified the patient and participated in the time-out.: Yes Procedure Operation Date: 02/09/25 07:00 Actual Procedures p Right Total Knee Arthroplasty(Right), application alejo and Acticoat superficial wound VAC- Lopez Garcia MD Surgeon Lopez Garcia MD Tattoo Identifier Ramy SINGER Estimated Blood Loss 5 Findings Consistent with Post-Op Diagnosis Specimens Bone cuts Drains 2 Hemovac Anesthesia Type MAC Spinal Regional Complications none Disposition Disposition: Recovery Room Indications 69-year-old female with chronic progressive osteoarthritis right knee failed conservative management. Patient has tricompartmental osteoarthritis veug-jd-atuv medial wear with bone loss and subluxation. Patient had successful left knee replacement. Patient presents for right knee replacement. Description of Procedure The patient was taken to the operating room and anesthetized under spinal MAC regional block. Patient was placed supine on the the operating table. A pneumatic tourniquet was placed about the the obese right upper thigh. The knee exam demonstrated 5 degree flexion contracture with further flexion to 130 degrees. The involved leg was elevated exsanguinated with Esmarch bandage and the pneumatic tourniquet was raised to 325 millimeters mercury. A longitudinal incision was made across the anterior knee. Skin flaps were elevated. An incision was made into the medial retinaculum and extended up into the mid third of the quadriceps tendon and extended down to the tibial tubercle. Intra- articular findings demonstrated tricompartmental osteoarthritis fksj-cr-yqjh all compartments with chronic ACL tear medial subluxation large calcification in the lateral retinaculum. The knee was exposed by excising the posterior cruciate ligament and menisci. The infrapatellar fat pad was partially resected. The fat pad over the anterior femur at the upper aspect of the articular surface was resected for placement of the component in that area. A subperiosteal peel lateral release was performed around the patella. The calcification in the lateral retinaculum was excised The [employer]hew journey 2.0 posterior stabilized total knee arthroplasty system was utilized for the procedure. The custom femoral cutting guide was pinned in position. The distal femoral cut was made. Quality of bone was very hard. The size 4, 5 in 1 cutting block was placed. The anterior posterior and chamfer cuts were made. The knee was extended and a free hand cut technique was performed to the patella. The patella width was measured and the width was reproduced using a 32 symmetrical patella component. The excess lateral facet was beveled off to prevent any impingement. 3 drill holes are made for the patella component pegs. The tibia was then subluxed. The custom tibial cutting block was pinned in position and the proximal tibial cut was made with the oscillating saw. Flexion and extension gaps were balanced. No releases were required. The size 3 tibial trial was externally rotated in line with the tibial tubercle and pinned in position. The punch for the stem was used. The femoral trial was inserted and centered the notch cutting devices were used and the collet was placed. Tibial trials were used for the insert. The size 15 mm trial gave balanced ligaments through full range of motion. Patella tracking was assessed with range of motion. The patella tracked centrally. The trials were removed. The Orthomix anesthetic cocktail was injected per protocol. The cut bone surfaces and soft tissue were copiously irrigated with pulsatile lavage saline solution. The final components were cemented with Refobacin cement. The final components were [employer]hew journey posterior stabilized size 4 right femoral component with a 3 right tibial component with a 15 mm tibial polyethylene component with a 32 mm symmetrical patella polyethylene component. Xperience irrigation was placed over metal tray prior to polyethyle insertion. After the cement cured, the knee was then copiously irrigated with pulsatile lavage Xperience solution. 2 drains were brought out laterally connected to Hemovac. The distal quadriceps tendon and medial retinaculum were closed with interrupted xulnum-wf-dapeq #2 FiberWire sutures and a additional interrupted lmfaea-xf-bypan #2 FiberWire suture was placed at the apex of the quad split proximally and an additional similar suture placed at the level of the tibial polyethylene. A 0 strata fix running locking suture was placed from the superior quad split down to the inferior pole of the patella repairing the quadriceps tendon and medial retinaculum. Below that level interrupted pbunio-bx-itcls #1 Vicryl sutures were utilized. The knee was taken through full range of motion and repair was secure. Knee range of motion was 0 through 130 degrees. the subcutaneous tissues were closed with 2-0 Vicryl sutures. The skin was closed with surgical kenya. A alejo and Acticoat superficial wound VAC was applied. The tourniquet was let down and the patient had good capillary refill to the extremity. The patient tolerated the procedure well. My physician fire control assistant ENMANUEL Wyatt participated as wheelchair van operator first responder and was integral part in all aspects of the procedure including prepping, draping, leg positioning, soft tissue retraction, instrument management and assisted in the closure , wound VAC application and will participate in postoperative care the patient. I attest to the content of the Intraoperative Record and any orders documented therein. Any exceptions are noted below.
--- NOTE | 2025-02-09 10:04 | Anesthesiology Progress Note ---
Date of Service February 09, 2025 Anesthesia Post Procedure Vital Signs Vital Signs: Temp Pulse Pulse Resp BP BP Pulse Ox 02/09/25 10:00 65 18 125/75 99 02/09/25 09:50 67 16 110/71 99 02/09/25 09:40 65 18 115/64 99 02/09/25 09:33 36.6 C 73 16 97/60 L 94 02/09/25 05:40 36.7 C 86 20 170/92 H 95 O2 Del Method O2 Flow Rate 02/09/25 10:00 Oxymask 4 02/09/25 09:50 Oxymask 4 02/09/25 09:40 Oxymask 6 02/09/25 09:33 Oxymask 6 02/09/25 05:40 Room Air Transfer of Care Handoff Completed per policy Notes Mental Status: alert / awake / arousable Patient Amnestic to Procedure: Yes Nausea / Vomiting: adequately controlled Pain: adequately controlled Airway Patency, RR, SpO2: stable & adequate BP & HR: stable & adequate Hydration State: stable & adequate Neuraxial Anesthesia: was administered and sensory block is resolving Anesthetic Complications: no major complications apparent and Pt Satisfied with anesthetic care
--- NOTE | 2025-02-09 10:08 | XRay Report ---
TWO VIEWS RIGHT KNEE CLINICAL HISTORY: Postoperative examination. FINDINGS: AP and crosstable lateral portable views of the right knee are obtained. A right knee arthr oplasty is in near anatomic alignment. There has been undersurface remodeling of the patella. No acut e fracture is seen. There are expected postoperative changes around the knee including skin clips, a surgical drain, soft tissue edema, and subcutaneous gas. IMPRESSION: Expected postoperative changes status post right knee arthroplasty. No acute fracture is seen. ACT 112: Negative or not required by law. Electronically signed by: Heriberto Zimmerman M.D. 02/09/2025 10:07 AM
[2025-02-09] MEDS ORDERED: HYDROmorphone INJ 0.5 MG/0.5 ML SYR IV PRN (10:41)
[2025-02-09] MEDS ORDERED: diphenhydrAMINE Capsule 25 MG CAP PO PRN (10:41)
[2025-02-09] MEDS ORDERED: METOCLOPRAMIDE HCL INJ 5 MG/ML 2 ML VIAL IV PRN (10:41)
[2025-02-09] MEDS ORDERED: MAGNESIUM HYDROXIDE SUSP 30 ML UDC PO PRN (10:41)
[2025-02-09] MEDS ORDERED: KETOROLAC TROMETHAMINE 15 MG/ML VIAL IV PRN (10:41)
[2025-02-09] MEDS ORDERED: ALUMINUM/MAGNESIUM SUSP 30 ML UDC PO PRN (10:41)
[2025-02-09] MEDS ORDERED: NALOXONE HCL 0.4 MG/1 ML VIAL/CARP IV PRN (10:41)
[2025-02-09] MEDS: SODIUM CHLORIDE 0.9% 1,000 ML IV SCH (12:01)
[2025-02-09 13:43] VITALS: RESP 18
[2025-02-09] MEDS: GABAPENTIN 100 MG CAP PO SCH (14:08)
[2025-02-09] MEDS: TRANEXAMIC ACID / 0.7% NACL 1,000 MG/100 ML BAG IV SCH (15:59)
[2025-02-09] MEDS: DOCUSATE SODIUM 100 MG CAP PO SCH (20:33)
[2025-02-09] MEDS: SENNA 8.6 MG TAB PO SCH (20:33)
[2025-02-09] MEDS: ROSUVASTATIN CALCIUM 20 MG TAB PO SCH (20:33)
[2025-02-10] MEDS: LEVOTHYROXINE SODIUM 50 MCG TABLET PO SCH (05:44)
[2025-02-10 07:04] LABS: Hematocrit (blood only) 32.0 % (37.0-47.0); Hemoglobin 10.6 g/dl (12.0-16.0); Mean Corpuscular Hemoglobin 28.8 pg (25.0-34.0); Mean Corpuscular Volume 87.0 fL (80.0-100.0); Platelet Count 305 K/uL (130-400); RDW Standard Deviation 47.8 fL (36.4-46.3); Red Blood Count 3.68 M/uL (4.20-5.40); White Blood Count 13.91 K/ul (4.8-10.8)
[2025-02-10 07:31] LABS: Anion Gap 6.0 (3-11); Blood Urea Nitrogen 18.0 mg/dl (6-23); Calcium 8.7 mg/dl (8.6-10.3); Carbon Dioxide 27.0 mmol/L (21-32); Chloride 105.0 mmol/L (98-107); Creatinine Clr Calc Pharmacy 69.6 ml/min; Glucose 123.0 mg/dl (70-99(Fasting)); Potassium 4.5 mmol/L (3.5-5.1); Sodium 138.0 mmol/L (136-145)
--- NOTE | 2025-02-10 08:16 | Orthopedic Progress Note ---
Date of Service February 10, 2025 Assessment & Plan (1) Osteoarthritis of right knee: Plan: Postop day 1 right knee replacement. Doing satisfactorily. Drain can be discontinued today. Patient will be discharged home today. Patient will do outpatient physical therapy. Patient will follow-up in 2 weeks for staple removal. End-stage tricompartmental right knee osteoarthritis. Proceed with [employer] Nephew journey total knee replacement. May need lateral release micropsia knee due to patellofemoral malalignment. (2) Status post left knee replacement: Admission and Anticipated Discharge Date Admission Date: February 09, 2025 Subjective Doing well no complaints Review of Systems Review of Systems: No chest pain shortness of breath. Physical Exam Musculoskeletal: Independent straight leg raise dressing dry and intact distal circulation sensorimotor exam intact. Results & Data Vital Signs (Past 12 Hours) Vital Signs Temp Pulse Resp BP Pulse Ox O2 Del Method 02/10/25 04:00 36.7 C 72 18 145/69 H 96 Room Air 02/10/25 00:11 36.8 C 69 18 120/71 94 Room Air Diagnostic Findings Satisfactory aligned right knee replacement (1) Osteoarthritis of right knee Osteoarthritis type: primary Qualified Code(s): M17.11 - Unilateral primary osteoarthritis, right knee
[2025-02-10 08:18] VITALS: TEMP 97.7; O2SAT 94
[2025-02-10] MEDS: dexAMETHasone 10 MG in SYRINGE 0 ML IV SCH (08:34)
[2025-02-10] MEDS: ASPIRIN 81 MG ECTAB PO SCH (08:35)
[2025-02-10] MEDS: MULTIVITAMIN TAB PO SCH (08:35)
[2025-02-10] MEDS ORDERED: NON-FORMULARY MEDICATION (Mv-Mn-Om3-Dha-Epa-Fish-Lut-Zea [Ocuvite Adult 50 Plus] 250 mg (9 PO SCH (09:00)
[2025-02-10] MEDS ORDERED: NON-FORMULARY MEDICATION (Glucos Sul 2kcl-Msm-Chond-C-Mn [Glucosamine Chondroitin] 550-30- PO SCH (09:00)
[2025-02-10 10:30] VITALS: BP 145/69; PULSE 71
== END 2025-02-10 11:07 | disposition home or self-care (01) ==
LOC: ASU 05:23 → 3W 05:23